=== PATIENT | female | born 1990 | race Caucasian/White ===

== ENCOUNTER 2025-02-19 00:38 | Emergency (ER) | payer OTHER ==
[~2025-02-19] VITALS: Ht 149.9 cm; Wt 120.0 kg
[~2025-02-19 00:38] MED LIST: ADVIL200 M1 PO; AZITHROMYCIN250 MG PO; BIRTH CONTROL PILL; CEFDINIR300 MG PO; CLINDAMYCIN HC300 MG PO; IBUPROFEN600 MG PO; KEFLEX500 MG PO; MIRENA1 EACH IY; NORCO 5-325 TA1 EACH PO; PENICILLIN V P500 MG PO; PERCOCET 5-3251 EACH PO
[2025-02-19] MEDS ORDERED: ALBUTEROL/IPRATROPIUM 3 ML NEB INH ONE (01:15)
[2025-02-19] MEDS ORDERED: GUAIFENESIN/CODEINE 5 ML UDC PO ONE (01:45)
[2025-02-19] MEDS ORDERED: GUAIFENESIN/CODEINE 60 ML HOME.PACK PO ONE (02:15)
[2025-02-19] MEDS ORDERED: predniSONE 20 MG TAB PO ONE (02:15)
[2025-02-19] MEDS ORDERED: GUAIFENESIN-CO118 ML PO (02:17)
[2025-02-19] MEDS ORDERED: METHYLPREDNISOLO4 M1 PO (02:17)
[2025-02-19 02:34] VITALS: BP 158/129
== END 2025-02-19 02:39 | disposition home or self-care (01) ==
LOC: ED 00:38
DX: J20.9 Acute bronchitis, unspecified (principal); F17.200 Nicotine dependence, unspecified, uncomplicated; Z88.8 Allergy status to other drugs, medicaments and biological substances; Z88.0 Allergy status to penicillin; Z79.899 Other long term (current) drug therapy
CPT/HCPCS: 71045; 87651; 94640; 99283-25; J7512